=== PATIENT | female | born 1965 | race Caucasian/White ===

== ENCOUNTER 2020-09-10 14:28 | Outpatient (CLI) | payer BC ==
--- NOTE | 2020-09-11 07:19 | RAD ---
XR Hand Rt 3 View STANDARD History: Hand pain Comparison: None. Findings: No acute fracture or malalignment. No erosions or periostitis. Mild degenerative disease of the thumb carpometacarpal joint. Soft tissues are unremarkable. Impression: No acute osseous abnormality or evidence for inflammatory arthropathy.
== END 2020-09-10 14:29 | disposition home or self-care (01) ==
LOC: BICRAD 14:28
PROVIDERS: ATTEND Physician Assistant
DX: M79.641 Pain in right hand (principal)